=== PATIENT | female | born 1980 | race Two or more races ===

== ENCOUNTER 2022-05-05 10:11 | Emergency (ER) | payer BC ==
[~2022-05-05] VITALS: Ht 160 cm; Wt 90.7 kg
[2022-05-05 10:11] VITALS: BP 149/80
--- NOTE | 2022-05-05 10:34 | NUR ---
BIBS C/O LEFT ARM STAPH INFECTION X4 DAYS, ASKING FOR IV ANTIBIOTICS. THE PATIENT DENIES PAIN AT THIS TIME. IN ROOM AIR AND DENIES SOB. RESPIRATION REGULAR AND UNLABORED. WILL CONTINUE TO MONITOR THE PATIENT.
--- NOTE | 2022-05-05 10:35 | NUR ---
DR GUILLEN AT BEDSIDE
[2022-05-05] MEDS ORDERED: LIDOCAINE /MPF 1% VIAL 5 ML VIAL ONE (10:46)
[2022-05-05] MEDS ORDERED: CEFTRIAXONE 1 G VIAL ONE (10:47)
[2022-05-05] MEDS ORDERED: MUPI22OI2 TP (11:00)
[2022-05-05] MEDS ORDERED: CEFTRIAXONE 1 G VIAL IM ONE (11:00)
--- NOTE | 2022-05-05 11:03 | NUR ---
Patient discharged to home in stable condition. Written and verbal after care instructions given. Patient verbalizes understanding of instruction.
== END 2022-05-05 11:04 | disposition home or self-care (01) ==
LOC: ER 10:19
DX: L03.114 Cellulitis of left upper limb (principal); L73.9 Follicular disorder, unspecified; L01.00 Impetigo, unspecified
CPT/HCPCS: 99283; 96372; J0696; J3490